=== PATIENT | male | born 1985 | race Caucasian/White ===

== ENCOUNTER 2019-04-15 00:14 | Emergency (ER) | payer SELFPAY ==
[~2019-04-15] VITALS: Ht 182.9 cm; Wt 82.6 kg
[2019-04-15 00:25] VITALS: BP_SYST 161
--- NOTE | 2019-04-15 00:32 | NUR ---
Patient to ER bed 4 to gown for evaluation. Side rails up. Report given to ABBY GUNDERSON.
--- NOTE | 2019-04-15 00:46 | NUR ---
courtroom deputy bedside for Pt's statement and report filling
--- NOTE | 2019-04-15 00:48 | NUR ---
VSS no s/s of acute distress. Resting on gurney rails up
--- NOTE | 2019-04-15 01:30 | NUR ---
ER Dr. eGrman at bedside examining patient.
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
[2019-04-15] MEDS ORDERED: MORPHINE 4 MG/ML INJ. SYRINGE IVP ONE (01:45)
[2019-04-15 02:30] LABS: BASOPHILS # (AUTO) 0.1 K/uL (0.0-0.2); BASOPHILS % (AUTO) 0.5 % (0.0-2.0); EOSINOPHILS # (AUTO) 0.2 K/uL (0.0-0.4); EOSINOPHILS % (AUTO) 1.4 % (0.0-4.0); HEMATOCRIT 43.8 % (36-54); LYMPHOCYTES # (AUTO) 1.6 K/uL (1.0-5.5); LYMPHOCYTES % (AUTO) 14.1 % (20.5-51.5); MEAN CORPUSCULAR HEMOGLOBIN 30 pg (27-31); MEAN CORPUSCULAR HGB CONC 34 % (32-36); MEAN CORPUSCULAR VOLUME 87 fL (79.0-98.0); MONOCYTES % (AUTO) 9.2 % (1.7-9.3); NEUTROPHILS # (AUTO) 8.5 K/uL (1.8-7.7); NEUTROPHILS % (AUTO) 74.8 % (40.0-70.0); PLATELET COUNT (AUTO) 305 K/uL (130-430); RED BLOOD CELL COUNT(AUTO) 5.02 MIL/uL (4.2-6.2); RED CELL DISTRIBUTION WIDTH 13.4 % (9.0-15.0); WHITE BLOOD COUNT (AUTO) 11.3 K/uL (4.8-10.8)
--- NOTE | 2019-04-15 02:37 | NUR ---
Patient does not wish to proceed with medical care recommended by Dr. German. Patient given information related to possible complications, up to and including , which could occur as a result of leaving hospital at this time. Patient verbalizes understanding of risks involved leaving against medical advice. Patient has signed AMA form.
[2019-04-15 02:47] LABS: PROTHROMBIN TIME 9.8 SECS (9.5-12.5)
== END 2019-04-15 02:37 | disposition left against medical advice (07) ==
LOC: SED 00:14
DX: M54.5 Low back pain (principal); R10.2 Pelvic and perineal pain; V47.5XXA Car driver injured in collision with fixed or stationary object in traffic accident, initial encounter; Y93.89 Activity, other specified; Y92.89 Other specified places as the place of occurrence of the external cause; Y99.8 Other external cause status
CPT/HCPCS: 36415; 72131; 85025; 85610-TC; 99284; J2270